=== PATIENT | male | born 1945 | race Caucasian/White ===

== ENCOUNTER 2020-12-26 22:42 | Inpatient (IN) | payer OTHER ==
[~2020-12-26] VITALS: Ht 180.3 cm; Wt 54.0 kg
--- NOTE | ~2020-12-26 | CON ---
[address] [address] CONSULTATION Name: MARIFER MEJIA Room: [address] IN .R.#: [id number] Admission: 12/27/20 Attend Phys: Estephanie Maldonado Discharge: 01/04/21 Date of : 49 Report #: [id number] THIS REPORT FOR: cc: NO FAMILY PHYSICIAN or PCP NO FAMILY PHYSICIAN or PCP Marko Bell MD ~ DOC #: [id number] Marko Bell MD DATE OF CONSULTATION: 01/04/2021 HISTORY OF PRESENT ILLNESS: This is a 75-year-old male patient who was evaluated by me for the stroke. The patient was discussed with Dr. Miles. I talked to the patient's and the son. I talked to the nurse looking after this patient. Multiple consultants had been involved in this patient and this patient had multiple problems. I reviewed the notes and it looks like this patient was seen by Cardiology and wildlife rehabilitator for septic shock, acute respiratory failure, and he was managed. He continued to have numerous medical problems, both in the past as well as now. When he was not waking up, CT scan of the head was done and CT scan of the head demonstrated a left hemispheric stroke. I reviewed the CT films and subsequently reviewed with the family. REVIEW OF SYSTEMS: A 14-point review of system was carried out, it is pretty extensive. The patient was admitted with septic shock. He has a prior history of diabetes. He has a prior history of peripheral vascular disease. He had a pulmonary problem. He has a coronary artery disease. He has a peripheral vascular disease. This was his relevant 14-point review of systems. PAST MEDICAL HISTORY: Positive for amputation in the leg and multiple other problems. FAMILY HISTORY: Unremarkable. SOCIAL HISTORY: The patient has a son and a there and I talked to both of them. PHYSICAL EXAMINATION: GENERAL: His examination is pretty limited. He is extubated. He does not have any response at all. That makes rest of the neurological examination almost impossible. VITAL SIGNS: Temperature is 99.5, pulse is 109, and respiratory rate is in the 30s. LABORATORY DATA: White count is 17.4. The patient was comfort care as I [place] [address] CONSULTATION Name: MARIFER MEJIA Room: [address]#: [id number] Admission: 12/27/20 Attend Phys: Estephanie Maldonado Discharge: 01/04/21 Date of : 49 Report #: [id number] I reviewed the CT scan of the head and showed the pictures to the son who wanted to see that. This patient is right handed and he has a pretty large stroke, which is involving the motor cortex. I discussed with them that these kind of strokes typically cause right hemiplegia and aphasia. They are already aware of that. They wanted the patient to be comfort care and a Neurology consultation was requested to review the films and confirm the stroke and I did that and this patient does have a large stroke in the dominant hemisphere, which typically causes aphasia and hemiplegia and the patient has numerous medical problems. It appeared to be reasonable to respect the patient's family's wishes and please let us know if I can be of any further help. Marko Bell MD PK/JEFFRY By: 1412 35Marko Bell MD /nt
[~2020-12-26 22:42] MED LIST: COQ1050 MG PO; GLUCOPHAGE500 MG PO; PRILOSEC OTC20 MG PO; VITAMIN B-12100 MC1 PO
[2020-12-26 22:43] VITALS: BP 66/46
[2020-12-26 23:14] LABS: ABSOLUTE EOSINOPHILS 0.1 thou/uL (0.0-0.7); ABSOLUTE LYMPHOCYTES 0.8 thou/uL (0.8-5.3); ABSOLUTE MONOCYTES 0.2 thou/uL (0.0-1.2); ABSOLUTE NEUTROPHILS 5.4 thou/uL (1.6-8.1); BASOPHILS 0.4 %; EOSINOPHILS 1.9 %; LYMPHOCYTES 11.7 %; MCHC 31.7 g/dL (28.0-37.0); MCV 97.8 fL (80.0-100.0); MONOCYTES 3.5 %; MPV 6.9 fl. (7.2-11.1); NUCLEATED RBCS 0 /100WBC; PLATELET COUNT* 351 thou/uL (150-400); POLYS 82.5 %; RDW-CV 15.6 % (10.5-14.5); WBC 6.5 thou/uL (4.0-11.0)
[2020-12-26 23:16] LABS: BE 0.2 mmol/L (-2 to +3); PCO2 38.2 mmHg (35.0-45.0); PO2 107.4 mmHg (75.0-100.0); pH 7.424 (7.340-7.450)
[2020-12-26 23:28] LABS: HEMATOCRIT 18.6 % (42.0-52.0); HEMOGLOBIN 5.9 gm/dL (14.0-18.0)
[2020-12-26 23:30] LABS: ANION GAP 16 mmol/L (7-16); BUN 18 mg/dL (7-18); CHLORIDE 118 mmol/L (98-107); CO2 15 mmol/L (21-32); CREATININE 0.7 mg/dL (0.6-1.3); SODIUM 149 mmol/L (136-145)
[2020-12-26 23:32] LABS: CALCIUM < 5.0 mg/dL (8.5-10.1); GLUCOSE 34 mg/dL (70-99); INR 1.6; POTASSIUM 1.9 mmol/L (3.5-5.1); PROTIME 16.1 Seconds (9.20-11.50)
[2020-12-26 23:46] LABS: ALKALINE PHOSPHATASE 68 U/L (46-116); NT-PRO BRAIN NAT PEPTIDE 362 pg/mL (<300); SGOT 18 U/L (15-37); SGPT 8 U/L (30-65); TOTAL BILIRUBIN 0.3 mg/dL (<0.1-1.0); TOTAL PROTEIN 3.5 g/dL (6.4-8.2)
[2020-12-26 23:50] LABS: MAGNESIUM 0.7 mg/dL (1.8-2.4)
[2020-12-27] VITALS (198 sets, daily range): BP systolic 60–194; BP diastolic 40–117
[2020-12-27 02:23] LABS: BE -5.5 mmol/L (-2 to +3); PCO2 46.2 mmHg (35.0-45.0)
[2020-12-27 02:27] LABS: PO2 299.8 mmHg (75.0-100.0); pH 7.282 (7.340-7.450)
[2020-12-27 02:33] LABS: URINE BLOOD TRACE (Negative); URINE CLARITY CLEAR; URINE COLOR YELLOW; URINE GLUCOSE-RANDOM TRACE (Negative); URINE KETONES 1+ (Negative); URINE LEUKOCYTES-REFLEX NEGATIVE (Negative); URINE NITRITE-REFLEX NEGATIVE (Negative); URINE PROTEIN 1+ (Negative); URINE SPECIFIC GRAVITY 1.025 (1.005-1.030); URINE UROBILINOGEN 0.2 E.U./dl (0.2-1.0)
[2020-12-27 02:34] LABS: URINE BILIRUBIN 2+ (Negative)
[2020-12-27 02:36] LABS: ICTOTEST (BILI CONFIRMATORY) Negative (Negative)
[2020-12-27 02:37] LABS: HEMOGLOBIN 11.8 gm/dL (14.0-18.0)
[2020-12-27 02:38] LABS: CREATININE 1.4 mg/dL (0.6-1.3)
[2020-12-27 02:39] LABS: POTASSIUM 4.3 mmol/L (3.5-5.1)
[2020-12-27 02:40] LABS: CALCIUM 8.7 mg/dL (8.5-10.1)
[2020-12-27 11:38] LABS: ABSOLUTE EOSINOPHILS 0.2 thou/uL (0.0-0.7); ABSOLUTE LYMPHOCYTES 1.7 thou/uL (0.8-5.3); ABSOLUTE MONOCYTES 0.6 thou/uL (0.0-1.2); ABSOLUTE NEUTROPHILS 12.7 thou/uL (1.6-8.1); BASOPHILS 0.3 %; EOSINOPHILS 1.6 %; HEMATOCRIT 30.7 % (42.0-52.0); LYMPHOCYTES 11.1 %; MCH 30.6 pg (26.0-34.0); MCHC 32.6 g/dL (28.0-37.0); MCV 93.8 fL (80.0-100.0); MONOCYTES 4.2 %; MPV 7.1 fl. (7.2-11.1); NUCLEATED RBCS 0 /100WBC; POLYS 82.8 %; RBC 3.27 mil/uL (4.50-6.00); RDW-CV 15.2 % (10.5-14.5); WBC 15.4 thou/uL (4.0-11.0)
[2020-12-27 11:41] LABS: BE -2.9 mmol/L (-2 to +3); PO2 VENOUS 41.1 mmHg (35.0-45.0)
[2020-12-27 11:46] LABS: PLATELET COUNT* 461 thou/uL (150-400)
[2020-12-27 11:53] LABS: APTT 30.8 Seconds (25.0-31.3); INR 1.3; PROTIME 13.2 Seconds (9.20-11.50)
[2020-12-27 12:07] LABS: ALBUMIN 1.5 g/dL (3.4-5.0); CALCIUM 7.9 mg/dL (8.5-10.1); CREATININE 1.4 mg/dL (0.6-1.3); TOTAL BILIRUBIN 0.9 mg/dL (<0.1-1.0); TOTAL PROTEIN 5.5 g/dL (6.4-8.2)
[2020-12-27 17:22] LABS: HEMATOCRIT 30.6 % (42.0-52.0); HEMOGLOBIN 9.8 gm/dL (14.0-18.0); MCH 30.3 pg (26.0-34.0); MCHC 31.9 g/dL (28.0-37.0); MCV 94.8 fL (80.0-100.0); MPV 6.9 fl. (7.2-11.1); RBC 3.23 mil/uL (4.50-6.00); RDW-CV 15.3 % (10.5-14.5)
[2020-12-27 17:32] LABS: CALCIUM 8.1 mg/dL (8.5-10.1); CREATININE 1.5 mg/dL (0.6-1.3); MAGNESIUM 1.8 mg/dL (1.8-2.4); POTASSIUM 4.3 mmol/L (3.5-5.1)
[2020-12-28] VITALS (59 sets, daily range): BP systolic 74–158; BP diastolic 41–78
[2020-12-28 03:23] LABS: HEMATOCRIT 27.7 % (42.0-52.0); HEMOGLOBIN 8.9 gm/dL (14.0-18.0); MCH 30.4 pg (26.0-34.0); MCHC 32.2 g/dL (28.0-37.0); MCV 94.2 fL (80.0-100.0); MPV 6.9 fl. (7.2-11.1); NUCLEATED RBCS 0 /100WBC; RBC 2.94 mil/uL (4.50-6.00); RDW-CV 15.2 % (10.5-14.5); WBC 12.7 thou/uL (4.0-11.0)
[2020-12-28 03:33] LABS: PLATELET COUNT* 348 thou/uL (150-400)
[2020-12-28 03:49] LABS: ALBUMIN 2.4 g/dL (3.4-5.0); CALCIUM 7.7 mg/dL (8.5-10.1); CREATININE 1.4 mg/dL (0.6-1.3); MAGNESIUM 1.9 mg/dL (1.8-2.4); POTASSIUM 3.4 mmol/L (3.5-5.1)
[2020-12-28 05:20] LABS: ABSOLUTE BASOPHILS 0.1 thou/uL (0.0-0.2); ABSOLUTE EOSINOPHILS 0.1 thou/uL (0.0-0.7); ABSOLUTE NEUTROPHILS 11.4 thou/uL (1.6-8.1)
[2020-12-28 05:21] LABS: ANISOCYTOSIS 1+; PLATELET ESTIMATE ADEQUATE; POIKILOCYTOSIS 1+
[2020-12-28 10:18] LABS: BE -5.7 mmol/L (-2 to +3); PCO2 47.9 mmHg (35.0-45.0)
[2020-12-28 10:21] LABS: pH 7.262 (7.340-7.450)
--- NOTE | 2020-12-28 11:09 | EKG ---
[place] [address] ELECTROCARDIOGRAM REPORT Name: MARIFER MEJIA Room: [address] ADM IN [facility]#: [id number] Admission: 12/27/20 Attend Phys: Reginaldo Chinchilla Discharge: Date of : 49 Date of Service: 12/26/20 2245 Report #: [id number] THIS REPORT FOR: //name// [facility] ED Test Date: 2020-12-26 Test Time: 22:45:22 Pat Name: MARIFER MEJIA Department: Room: [facility] Gender: M Margin Analyst: GLADIS : 1945 Requested By: Bev Christine Order Number: [id number] MD: Conner Fine Measurements Intervals Juliette Rate: 141 P: 27 IN: 135 QRS: -8 QRSD: 65 T: 21 QT: 294 QTc: 450 Interpretive Statements Sinus tachycardia low voltage Inferior infarct, old poor r wave progression No previous ECG available for comparison Electronically Signed On 12-28-2020 11:08:55 CDT by Conner Fine [email or web address] <ELECTRONICALLY SIGNED> By: Conner Fine MD, [facility] 12/28/20 1108 2245 2245 Conner Fine MD, [facility] /EPI
--- NOTE | 2020-12-28 15:09 | 2DMMODE ---
[place] [address] 2 D/M-MODE ECHOCARDIOGRAM Name: MARIFER MEJIA Room: [address] ADM IN [facility]#: [id number] Admission: 12/27/20 Attend Phys: Reginaldo Chinchilla Discharge: Date of : 49 Date of Service: 12/28/20 1509 Report #: [id number] THIS REPORT FOR: cc: NO FAMILY PHYSICIAN or PCP NO FAMILY PHYSICIAN or PCP Conner Fine MD [facility] ~ APPROVED REPORT Study performed: 12/28/2020 09:44:09 EXAM: Comprehensive 2D, Doppler, and color-flow Echocardiogram Patient Location: In-Patient Room #: [facility] Status: routine BSA: 1.60 HR: 80 bpm BP: 131/63 mmHg Rhythm: NSR Other Information Technically limited study due to only having apical views. Indications shock 2D Dimensions LVOT Diam: 19.37 (18-24mm) Volumes Left Atrial Volume (Systole) LA ESV Index: 21.70 mL/m2 Aortic Valve AoV Peak Daniel.: 1.25 m/s AO Peak Gr.: 6.22 mmHg LVOT Max P.60 mmHg AO Mean Gr.: 3.17 mmHg LVOT Mean P.20 mmHg LVOT Max V: 0.81 m/s AO V2 VTI: 26.19 cm LVOT Mean V: 0.50 m/s NELLY (VTI): 2.14 cm2 LVOT V1 VTI: 18.98 cm Mitral Valve E/A Ratio: 0.54 MV Decel. Time: 110.[address] [address] 2 D/M-MODE ECHOCARDIOGRAM Name: MARIFER MEJIA Room: [address] IN [facility]#: [id number] Admission: 12/27/20 Attend Phys: Reginaldo Chinchilla Discharge: Date of : 49 Date of Service: 12/28/20 1509 Report #: [id number] MV E Max Daniel.: 0.65 m/s MV PHT: 31.93 ms MVA (PHT): 6.89 cm2 TDI E/Lateral E': 7.22 E/Medial E': 10.83 Medial E' Daniel.: 0.06 m/s Lateral E' Daniel.: 0.09 m/s Tricuspid Valve RAP Estimate: 5.00 mmHg TR Peak Gr.: 36.75 mmHg RVSP: 41.00 mmHg PA Pressure: 41.00 mmHg Left Ventricle The left ventricle is normal size. There is normal LV segmental wall motion. There is normal left ventricular wall thickness. The left ventricular systolic function is normal. The left ventricular ejection fraction is within the normal range. LVEF is 60-65%. Grade I - abnormal relaxation pattern. Right Ventricle The right ventricle is normal size. The right ventricular systolic function is normal. Atria The left atrium size is normal. The right atrium size is normal. Aortic Valve Mild aortic valve sclerosis. No aortic regurgitation is present. There is no aortic valvular stenosis. Mitral Valve The mitral valve is normal in structure. Trace mitral regurgitation. No evidence of mitral valve stenosis. Tricuspid Valve The tricuspid valve is normal in structure. Moderate tricuspid regurgitation. estimated pa pressure 45 mm Hg Pulmonic Valve Pulmonic valve is not visualized. Great Vessels The aortic root is normal in size. IVC [place] [address] 2 D/M-MODE ECHOCARDIOGRAM Name: MARIFER MEJIA Room: [address] IN [facility].#: [id number] Admission: 12/27/20 Attend Phys: Reginaldo Chinchilla Discharge: Date of : 49 Date of Service: 12/28/20 1509 Report #: [id number] collapses >50% with inspiration. Pericardium There is no pericardial effusion. <Conclusion> LVEF is 60-65%. Trace mitral regurgitation. Moderate tricuspid regurgitation. estimated pa pressure 45 mm Hg <ELECTRONICALLY SIGNED> By: Conner Fine MD, [facility] 12/28/20 1509 1509 1509 Conner Fine MD, FACC /INF
[2020-12-28 17:49] LABS: BE -2.2 mmol/L (-2 to +3)
[2020-12-28 17:54] LABS: PCO2 51.4 mmHg (35.0-45.0); pH 7.295 (7.340-7.450)
[2020-12-28 18:33] LABS: CALCIUM 7.3 mg/dL (8.5-10.1); MAGNESIUM 1.5 mg/dL (1.8-2.4); POTASSIUM 3.6 mmol/L (3.5-5.1)
[2020-12-29] VITALS (49 sets, daily range): BP systolic 68–169; BP diastolic 41–84
[2020-12-29 04:26] LABS: HEMATOCRIT 27.2 % (42.0-52.0); HEMOGLOBIN 8.8 gm/dL (14.0-18.0); MCH 30.3 pg (26.0-34.0); MCHC 32.2 g/dL (28.0-37.0); MPV 7.2 fl. (7.2-11.1); NUCLEATED RBCS 0 /100WBC; PLATELET COUNT* 317 thou/uL (150-400); RDW-CV 15.6 % (10.5-14.5); WBC 27.1 thou/uL (4.0-11.0)
[2020-12-29 04:40] LABS: CALCIUM 7.5 mg/dL (8.5-10.1); CREATININE 1.1 mg/dL (0.6-1.3); PHOSPHORUS* 1.5 mg/dL (2.5-4.9); POTASSIUM 3.3 mmol/L (3.5-5.1)
[2020-12-29 05:36] LABS: ABSOLUTE LYMPHOCYTES 1.9 thou/uL (0.8-5.3); ABSOLUTE MONOCYTES 1.1 thou/uL (0.0-1.2); ABSOLUTE NEUTROPHILS 24.1 thou/uL (1.6-8.1); ANISOCYTOSIS 1+; PLATELET ESTIMATE ADEQUATE; POIKILOCYTOSIS 1+
[2020-12-29 08:51] LABS: BE -1.7 mmol/L (-2 to +3); PCO2 41.3 mmHg (35.0-45.0); PO2 84.6 mmHg (75.0-100.0); pH 7.372 (7.340-7.450)
[2020-12-30] VITALS (78 sets, daily range): BP systolic 77–165; BP diastolic 49–82
[2020-12-30 05:58] LABS: ABSOLUTE BASOPHILS 0.1 thou/uL (0.0-0.2); ABSOLUTE LYMPHOCYTES 2.2 thou/uL (0.8-5.3); ABSOLUTE MONOCYTES 0.4 thou/uL (0.0-1.2); ABSOLUTE NEUTROPHILS 15.2 thou/uL (1.6-8.1); BASOPHILS 0.3 %; EOSINOPHILS 0.2 %; HEMATOCRIT 28.8 % (42.0-52.0); HEMOGLOBIN 9.4 gm/dL (14.0-18.0); LYMPHOCYTES 12.4 %; MCH 30.2 pg (26.0-34.0); MCHC 32.5 g/dL (28.0-37.0); MCV 92.8 fL (80.0-100.0); MONOCYTES 2.2 %; NUCLEATED RBCS 0 /100WBC; PLATELET COUNT* 279 thou/uL (150-400); POLYS 84.9 %; RDW-CV 15.5 % (10.5-14.5); WBC 17.9 thou/uL (4.0-11.0)
[2020-12-30 06:23] LABS: ALBUMIN 2.8 g/dL (3.4-5.0); CALCIUM 7.6 mg/dL (8.5-10.1); CREATININE 1.1 mg/dL (0.6-1.3); MAGNESIUM 1.4 mg/dL (1.8-2.4); POTASSIUM 4.4 mmol/L (3.5-5.1); TOTAL BILIRUBIN 0.7 mg/dL (<0.1-1.0); TOTAL PROTEIN 5.8 g/dL (6.4-8.2)
[2020-12-30 08:41] LABS: BE -0.2 mmol/L (-2 to +3); PCO2 29.5 mmHg (35.0-45.0); PO2 78.7 mmHg (75.0-100.0); pH 7.497 (7.340-7.450)
[2020-12-30 12:08] LABS: URINE BILIRUBIN NEGATIVE (Negative); URINE BLOOD 2+ (Negative); URINE CLARITY CLEAR; URINE COLOR YELLOW; URINE GLUCOSE-RANDOM 1+ (Negative); URINE KETONES 1+ (Negative); URINE LEUKOCYTES-REFLEX NEGATIVE (Negative); URINE NITRITE-REFLEX NEGATIVE (Negative); URINE PROTEIN TRACE (Negative); URINE UROBILINOGEN 0.2 E.U./dl (0.2-1.0)
[2020-12-30 12:15] LABS: BACTERIA-REFLEX 1-9 Few /HPF (None Seen); MUCUS 0-3 Light strn/LPF (None Seen); SQUAMOUS 0-3 Few /LPF (0-3); URINE RBC 3-10 Few /HPF (0-2); URINE WBC-REFLEX 0-5 Rare /HPF (0-5)
[2020-12-30 12:16] LABS: CASTS None Seen /LPF (None Seen); CRYSTALS None Seen /LPF (None Seen)
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
[2020-12-31] VITALS (38 sets, daily range): BP systolic 77–139; BP diastolic 48–73
[2020-12-31 06:04] LABS: ABSOLUTE BASOPHILS 0.1 thou/uL (0.0-0.2); ABSOLUTE MONOCYTES 0.5 thou/uL (0.0-1.2); ABSOLUTE NEUTROPHILS 10.9 thou/uL (1.6-8.1); BASOPHILS 0.7 %; HEMATOCRIT 28.6 % (42.0-52.0); HEMOGLOBIN 9.1 gm/dL (14.0-18.0); MCH 29.8 pg (26.0-34.0); MCV 93.4 fL (80.0-100.0); MONOCYTES 3.6 %; MPV 7.9 fl. (7.2-11.1); NUCLEATED RBCS 0 /100WBC; PLATELET COUNT* 239 thou/uL (150-400); POLYS 80.7 %; RBC 3.06 mil/uL (4.50-6.00); RDW-CV 15.5 % (10.5-14.5); WBC 13.5 thou/uL (4.0-11.0)
[2020-12-31 06:17] LABS: ALBUMIN 2.2 g/dL (3.4-5.0); CALCIUM 7.5 mg/dL (8.5-10.1); MAGNESIUM 2.2 mg/dL (1.8-2.4); POTASSIUM 3.7 mmol/L (3.5-5.1); TOTAL BILIRUBIN 0.6 mg/dL (<0.1-1.0); TOTAL PROTEIN 5.7 g/dL (6.4-8.2)
[2020-12-31 09:16] LABS: PO2 104.5 mmHg (75.0-100.0); pH 7.485 (7.340-7.450)
[2020-12-31 13:20] LABS: BE 2.8 mmol/L (-2 to +3); PCO2 42.4 mmHg (35.0-45.0); PO2 82.2 mmHg (75.0-100.0); pH 7.428 (7.340-7.450)
[2021-01-01] VITALS (31 sets, daily range): BP systolic 93–130; BP diastolic 46–68
[2021-01-01 05:03] LABS: ABSOLUTE EOSINOPHILS 0.3 thou/uL (0.0-0.7); ABSOLUTE LYMPHOCYTES 1.7 thou/uL (0.8-5.3); ABSOLUTE MONOCYTES 0.6 thou/uL (0.0-1.2); ABSOLUTE NEUTROPHILS 14.6 thou/uL (1.6-8.1); BASOPHILS 0.2 %; HEMATOCRIT 28.7 % (42.0-52.0); HEMOGLOBIN 9.3 gm/dL (14.0-18.0); LYMPHOCYTES 9.8 %; MCH 30.3 pg (26.0-34.0); MCHC 32.4 g/dL (28.0-37.0); MCV 93.6 fL (80.0-100.0); MONOCYTES 3.4 %; MPV 8.2 fl. (7.2-11.1); NUCLEATED RBCS 0 /100WBC; PLATELET COUNT* 295 thou/uL (150-400); POLYS 84.6 %; RBC 3.07 mil/uL (4.50-6.00); RDW-CV 15.3 % (10.5-14.5); WBC 17.3 thou/uL (4.0-11.0)
[2021-01-01 05:13] LABS: ALBUMIN 2.7 g/dL (3.4-5.0); CALCIUM 8.1 mg/dL (8.5-10.1); MAGNESIUM 1.7 mg/dL (1.8-2.4); PHOSPHORUS* 2.9 mg/dL (2.5-4.9); POTASSIUM 3.8 mmol/L (3.5-5.1); TOTAL BILIRUBIN 1.6 mg/dL (<0.1-1.0); TOTAL PROTEIN 6.2 g/dL (6.4-8.2)
[2021-01-01 12:34] LABS: BE -3.2 mmol/L (-2 to +3); PCO2 VENOUS 38.4 mmHg (41.0-51.0); PO2 VENOUS 56.4 mmHg (35.0-45.0)
[2021-01-02] VITALS (27 sets, daily range): BP systolic 119–150; BP diastolic 53–83
[2021-01-02 04:00] LABS: ABSOLUTE LYMPHOCYTES 0.8 thou/uL (0.8-5.3); ABSOLUTE MONOCYTES 0.3 thou/uL (0.0-1.2); ABSOLUTE NEUTROPHILS 12.4 thou/uL (1.6-8.1); BASOPHILS 0.1 %; EOSINOPHILS 0.1 %; HEMATOCRIT 27.5 % (42.0-52.0); HEMOGLOBIN 8.6 gm/dL (14.0-18.0); LYMPHOCYTES 5.8 %; MCH 29.9 pg (26.0-34.0); MCHC 31.2 g/dL (28.0-37.0); MCV 95.8 fL (80.0-100.0); MONOCYTES 2.1 %; MPV 8.5 fl. (7.2-11.1); NUCLEATED RBCS 0 /100WBC; PLATELET COUNT* 231 thou/uL (150-400); POLYS 91.9 %; RBC 2.87 mil/uL (4.50-6.00); RDW-CV 15.6 % (10.5-14.5); WBC 13.5 thou/uL (4.0-11.0)
[2021-01-02 04:36] LABS: ALBUMIN 2.4 g/dL (3.4-5.0); CALCIUM 7.6 mg/dL (8.5-10.1); CREATININE 1.2 mg/dL (0.6-1.3); POTASSIUM 4.1 mmol/L (3.5-5.1); TOTAL BILIRUBIN 1.3 mg/dL (<0.1-1.0)
[2021-01-02 10:50] LABS: BE -3.6 mmol/L (-2 to +3); PCO2 VENOUS 40.2 mmHg (41.0-51.0); PO2 VENOUS 132.4 mmHg (35.0-45.0)
[2021-01-03] VITALS (45 sets, daily range): BP systolic 94–132; BP diastolic 54–82
[2021-01-03 06:56] LABS: HEMATOCRIT 26.2 % (42.0-52.0); HEMOGLOBIN 8.4 gm/dL (14.0-18.0); MCH 30.6 pg (26.0-34.0); MCHC 32.1 g/dL (28.0-37.0); MCV 95.4 fL (80.0-100.0); MPV 8.6 fl. (7.2-11.1); RBC 2.75 mil/uL (4.50-6.00); RDW-CV 16.2 % (10.5-14.5); WBC 17.4 thou/uL (4.0-11.0)
[2021-01-03 07:07] LABS: CALCIUM 8.5 mg/dL (8.5-10.1); CREATININE 0.9 mg/dL (0.6-1.3); POTASSIUM 4.9 mmol/L (3.5-5.1)
[2021-01-04] VITALS: BP 102/62
[2021-01-04 04:00] VITALS: BP 86/53
[2021-01-04 08:00] VITALS: BP 92/53
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
== END 2021-01-04 13:15 | DRG 870 ==
LOC: M.ERS 22:42 → M.TBA-ER 12-27 01:42 → M.ICU 12-27 01:42 → M.ORTHSURG 01-04 13:09
PROVIDERS: Emergency Medicine; Internal Medicine; Internal Medicine Critical Care Medicine; ADMIT Internal Medicine; ATTEND Internal Medicine
PROC: 5A1955Z Respiratory Ventilation, Greater than 96 Consecutive Hours (ICD-10-PCS; principal; 2020-12-27)
PROC: 0BH17EZ Insertion of Endotracheal Airway into Trachea, Via Natural or Artificial Opening (ICD-10-PCS; principal; 2020-12-27)
PROC: 30233N1 Transfusion of Nonautologous Red Blood Cells into Peripheral Vein, Percutaneous Approach (ICD-10-PCS; principal; 2020-12-27)
PROC: B548ZZA Ultrasonography of Superior Vena Cava, Guidance (ICD-10-PCS; 2020-12-28)
PROC: 02HV33Z Insertion of Infusion Device into Superior Vena Cava, Percutaneous Approach (ICD-10-PCS; 2020-12-28)
PROC: 5A0945A Assistance with Respiratory Ventilation, 24-96 Consecutive Hours, High Flow/Velocity Cannula (ICD-10-PCS; 2020-12-31)
DX: A41.89 Other specified sepsis (principal); R65.21 Severe sepsis with septic shock; N17.0 Acute kidney failure with tubular necrosis; G93.41 Metabolic encephalopathy; E11.10 Type 2 diabetes mellitus with ketoacidosis without coma; J69.0 Pneumonitis due to inhalation of food and vomit; J96.01 Acute respiratory failure with hypoxia; E43 Unspecified severe protein-calorie malnutrition; I69.351 Hemiplegia and hemiparesis following cerebral infarction affecting right dominant side; R71.0 Precipitous drop in hematocrit; A04.72 Enterocolitis due to Clostridium difficile, not specified as recurrent; Z68.1 Body mass index [BMI] 19.9 or less, adult; D47.3 Essential (hemorrhagic) thrombocythemia; E87.6 Hypokalemia; E83.51 Hypocalcemia; E11.51 Type 2 diabetes mellitus with diabetic peripheral angiopathy without gangrene; K21.9 Gastro-esophageal reflux disease without esophagitis; I10 Essential (primary) hypertension; E11.65 Type 2 diabetes mellitus with hyperglycemia; I25.10 Atherosclerotic heart disease of native coronary artery without angina pectoris; E83.42 Hypomagnesemia; I95.9 Hypotension, unspecified; Z66 Do not resuscitate; Z20.822 Contact with and (suspected) exposure to COVID-19; Z89.612 Acquired absence of left leg above knee; Z79.84 Long term (current) use of oral hypoglycemic drugs; Z79.899 Other long term (current) drug therapy; Z88.5 Allergy status to narcotic agent